=== PATIENT | female | born 2005 | race Hispanic/Latino ===

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

== ENCOUNTER 2023-03-28 14:58 | Emergency (ER) | payer BC, OTHER, SELFPAY ==
[2023-03-28 15:08] VITALS: BP 135/81; PULSE 84; RESP 16; TEMP 36.9; O2SAT 99
--- NOTE | 2023-03-28 15:46 | ED.GENADULT ---
HPI - General Adult General Chief complaint: Unspecified Stated complaint: pain in chest/left arm/headache Related Data Home Medications Medication Instructions Recorded Confirmed norgestimate 0.25 mg-ethinyl tablet 03/28/23 estradiol 35 mcg tablet (Mary) Allergies Allergy/AdvReac Type Severity Reaction Status Date / Time No Known Allergies Allergy Verified 03/28/23 15:13 Course Vital Signs Vital signs: Vital Signs Temperature 98.4 F 03/28/23 15:08 Pulse Rate 84 03/28/23 15:08 Respiratory Rate 16 03/28/23 15:08 Blood Pressure 135/81 03/28/23 15:08 Pulse Oximetry 99 03/28/23 15:08 Oxygen Delivery Room Air 03/28/23 15:08 Temperature 98.4 F 03/28/23 15:08 Pulse Rate 84 03/28/23 15:08 Respiratory Rate 16 03/28/23 15:08 Blood Pressure 135/81 03/28/23 15:08 Pulse Oximetry 99 03/28/23 15:08 Oxygen Delivery Room Air 03/28/23 15:08 Medical Decision Making Vital Signs Vital Signs: Vital Signs Temperature 98.4 F 03/28/23 15:08 Pulse Rate 84 03/28/23 15:08 Respiratory Rate 16 03/28/23 15:08 Blood Pressure 135/81 03/28/23 15:08 Pulse Oximetry 99 03/28/23 15:08 Oxygen Delivery Room Air 03/28/23 15:08 Temperature 98.4 F 03/28/23 15:08 Pulse Rate 84 03/28/23 15:08 Respiratory Rate 16 03/28/23 15:08 Blood Pressure 135/81 03/28/23 15:08 Pulse Oximetry 99 03/28/23 15:08 Oxygen Delivery Room Air 03/28/23 15:08 Discharge Plan Discharge Prescriptions: No Action norgestimate-ethinyl estradiol [Mary] 0.25-35 mg-mcg tablet Follow-up/Referrals: [facility] [Primary Care Provider] -
--- NOTE | 2023-03-28 15:47 | ED.GENADULT ---
HPI - General Adult General Chief complaint: Unspecified Stated complaint: pain in chest/left arm/headache Source: patient and RN notes reviewed Mode of arrival: ambulatory Limitations: no limitations History of Present Illness HPI narrative: 17-year-old female presenting for complaint of left arm pain x3 days. Pain is reported in the anterior chest, shoulder and Pain radiates to the elbow. Reports some tingling to the forearm and states legal aid feels weak. Pain is reproducible, and worse with movement at the shoulder. Denies injury or over use. Patient also reports headache x1 week. Taking excedrin, ibuprofen and amitriptyline for migraines. Denies vision changes, dizziness, n/v/d/f/c. Related Data Home Medications Medication Instructions Recorded Confirmed norgestimate 0.25 mg-ethinyl tablet 03/28/23 estradiol 35 mcg tablet (Mary) Allergies Allergy/AdvReac Type Severity Reaction Status Date / Time No Known Allergies Allergy Verified 03/28/23 15:13 Review of Systems Review of Systems: CONSTITUTIONAL: Denies body aches, fever, chills, or sweats. EYES: Denies visual changes, redness, or discharge. ENT: Denies rhinorrhea, congestion, sore throat, or otalgia. CARDIOVASCULAR: Denies chest pain, palpitations, or edema. RESPIRATORY: Denies cough or dyspnea. GASTROINTESTINAL: Denies abdominal pain, nausea, vomiting, or diarrhea. GENITOURINARY: Denies dysuria or hematuria. SKIN: Denies rash, itching, or wounds. MUSCULOSKELETAL: Reports left arm pain denies back pain, joint pain, or myalgia. NEUROLOGIC: Endorses headache, denies numbness, or weakness, dizziness All systems reviewed & are unremarkable except as noted in HPI and below PMFSH Past Medical History Medical History (Updated 03/28/23 @ 16:38 by Amarilis Mercer, SHANNA) No pertinent past medical history Comments At time of signature, I have reviewed and agree with nursing past medical, surgical, social and family history unless otherwise noted. Please see nursing chart for further information. There is no relevant family history pertinent to the presenting complaint Exam Narrative: GENERAL: Well-appearing, well-nourished HEAD: Normocephalic, atraumatic. EYES: PERRLA, EOMI. ENT: Mucous membranes pink and moist. No rhinorrhea. NECK: Normal AROM. Supple. No vpt. CHEST: No respiratory distress. Clear to auscultation. HEART: Regular rate and rhythm. No murmur appreciated. Normal peripheral pulses. ABDOMEN: Soft, nontender, nondistended, normal active bowel sounds. MUSCULOSKELETAL: Left anterior deltoid and anterior chest wall tender with palpation; Full ROM to LUE, reports pain to shoulder and chest with movement of arm. No bony tenderness. EXTREMITIES: Normal range of motion; pain reported with movement. No edema. SKIN: Warm, dry, no rash. Capillary refill normal. Normal skin turgor. NEURO:No focal deficits. Alert and oriented x3. EOMs intact without nystagmus. No facial droop/asymmetry noted bilaterally. Grimace intact. Intact sensation in face. Hearing intact bilaterally. Shoulder shrug intact. Strength 5/5 bilateral upper extremities. Ambulatory exam with a normal based, steady gait. PSYCH: Normal affect. Chest: Chest/axillae images: 1. anterior chest wall pain with palpation, anterior deltoid pain Course Course Emergency Course: Patient is aware of diagnosis, understands and agrees to treatment plan. Anticipatory guidance given. Patient agrees to follow-up as directed and is aware of reasons to seek care at the emergency department. Portions of this record may have been created with voice recognition software Level of Care: Express Care Visit Vital Signs Vital signs: Vital Signs Temperature 98.4 F 03/28/23 15:08 Pulse Rate 84 03/28/23 15:08 Respiratory Rate 16 03/28/23 15:08 Blood Pressure 135/81 03/28/23 15:08 Pulse Oximetry 99 03/28/23 15:08 Oxygen Delivery Room Air 03/28/23 15:08 Tem
== END 2023-03-28 16:08 | disposition home or self-care (01) ==
PROVIDERS: Emergency Provider Nurse Practitioner Family
DX: R51.9 Headache, unspecified (principal); M79.622 Pain in left upper arm
CPT/HCPCS: 99213; G0463

== ENCOUNTER 2023-08-19 10:06 | Emergency (ER) | payer SELFPAY ==
--- NOTE | 2023-08-19 10:09 | ED.URI ---
HPI - URI/Sore Throat General Chief Complaint: Upper Respiratory Infection Stated Complaint: Sinus Time Seen by Provider: 08/19/23 10:09 Source: patient Mode of arrival: ambulatory Limitations: no limitations History of Present Illness HPI Narrative: Patient is a 18-year-old female who presents with congestion, sore throat, cough for over a week. Patient states she had fever yesterday of 101. Patient has been taking Robitussin. Denies any nausea, vomiting, diarrhea, ear pain. Household has similar symptoms. Related Data Home Medications Medication Instructions Recorded Confirmed norgestimate 0.25 mg-ethinyl 1 tablet PO DAILY 03/28/23 08/19/23 estradiol 35 mcg tablet (Mary) Allergies Allergy/AdvReac Type Severity Reaction Status Date / Time No Known Allergies Allergy Verified 08/19/23 10:23 Review of Systems Review of Systems: All systems reviewed & are unremarkable except as noted in HPI and below Constitutional: Constitutional: Denies body ache(s), Denies chills, Denies fatigue, Reports fever(s), Denies headache(s), Denies malaise and Denies weakness Eyes: Eyes: Denies blurry vision, Denies itchy eyes and Denies loss of vision ENT: Denies otalgia, Denies headache(s), Reports nasal congestion, Denies sinus pain and Reports sore throat Cardiovascular: Cardiovascular: Denies chest pain, Denies irregular heart rhythm and Denies dyspnea Respiratory: Respiratory: Reports cough and Denies dyspnea Gastrointestinal: Gastrointestinal: Denies abdominal pain, Denies diarrhea, Denies nausea and Denies vomiting Musculoskeletal: Musculoskeletal: Denies back pain, Denies myalgias and Denies arthralgias Integumentary/Breasts: Skin/Breast: Denies pruritus and Denies rash Neurologic: Denies headache(s), Denies loss of vision and Denies weakness Psychiatric: Psychiatric: Reports no additional psychiatric complaints Endocrine: Endocrine: Denies fatigue Allergic/Immunologic: Allergic/Immunologic: Denies itchy eyes PMFSH Past Medical History Medical History No pertinent past medical history Comments At time of signature, agree with nursing past medical, surgical, social and family history. There is no relevant family history pertinent to the presenting complaint. Exam Const: General: cooperative, healthy appearing, comfortable, no acute distress and well nourished Nutritional Appearance: well nourished Orientation/consciousness: patient oriented x3 Limitations: no limitations HENMT: Head: normal to inspection, normocephalic and atraumatic Ears: hearing grossly normal bilaterally, external ears normal, TM's normal bilaterally, EAC's normal and no periauricular adenopathy Face/Nose/Sinus: Normal external nose present, Abnormal mucous membranes and turbinates present erythematous bilateral and diffuse, normal facial exam, sinuses nontender and face symmetric Face and sinus: normal facial exam, sinuses nontender and face symmetric Mouth: Yes Normal oral and palatal mucosa present, Yes lip normal, Yes tongue normal, Yes Normal salivary glands and ducts present, Yes oropharynx normal and Yes moist mucous membranes Teeth and gingiva: dentition normal Throat: posterior oropharynx normal, tonsils normal and uvula midline Eyes: General: appearance normal, both eyes and all related structures Alignment and Position: alignment normal and position normal Periorbital: periorbital findings normal Eyelids: eyelids normal Pupils: Equal, round and reactive pupils present Neck: Neck: normal visual inspection, full ROM, no lymphadenopathy and supple Chest: Chest palpation & inspection: normal inspection of the chest and normal palpation of entire chest wall Resp: Effort & Inspection: normal respiratory effort and able to speak in complete sentences Auscultation: clear to auscultation bilaterally, no crackles, no rales, no rhonchi and no wheezes Cardio: Rate: regular rat
[2023-08-19 10:14] VITALS: BP 124/74; PULSE 78; RESP 16; TEMP 36.9; O2SAT 99
== END 2023-08-19 11:01 | disposition home or self-care (01) ==
PROVIDERS: Emergency Provider Nurse Practitioner Family; PCP Physician Assistant
DX: J06.9 Acute upper respiratory infection, unspecified (principal); Z79.899 Other long term (current) drug therapy
CPT/HCPCS: 87081; 87880; 99213; G0463

== ENCOUNTER 2023-10-19 14:18 | Emergency (ER) | payer OTHER, SELFPAY ==
--- NOTE | 2023-10-19 14:25 | ED.GENADULT ---
HPI - General Adult General Chief complaint: Upper Respiratory Infection Stated complaint: Sore Throat Source: patient, RN notes reviewed and old records reviewed Mode of arrival: ambulatory Limitations: no limitations History of Present Illness HPI narrative: 18-year-old female presents to [facility] complaint of sore throat that started 1 week ago. Patient states also started having fever and nausea 3 days ago. Patient taking ibuprofen with little relief. Patient states highest temperature was 101?. Related Data Home Medications Medication Instructions Recorded Confirmed norgestimate 0.25 mg-ethinyl 1 tablet PO DAILY 03/28/23 10/19/23 estradiol 35 mcg tablet (Mary) Allergies Allergy/AdvReac Type Severity Reaction Status Date / Time No Known Allergies Allergy Verified 10/19/23 14:31 Review of Systems Constitutional: Constitutional: Reports no additional constitutional complaints, Denies body ache(s), Denies chills, Denies fatigue, Reports fever(s) and Denies headache(s) Eyes: Eyes: Reports no additional eye complaints and Denies blurry vision ENT: Reports system reviewed and no additional complaints, except as documented, Denies vertigo, Denies dizziness, Denies ear discharge, Denies otalgia, Denies facial pain, Denies headache(s), Reports nasal congestion, Denies nasal discharge, Denies sinus pain, Denies sinus pressure and Reports sore throat Cardiovascular: Cardiovascular: Reports no additional cardiovascular complaints, Denies chest pain, Denies chest pain at rest, Denies rapid heart rate and Denies dyspnea Respiratory: Respiratory: Reports no additional respiratory complaints, Denies chest congestion, Denies cough, Denies pain on inspiration, Denies pain with cough and Denies dyspnea Gastrointestinal: Gastrointestinal: Denies abdominal pain, Denies diarrhea, Reports nausea and Denies vomiting Integumentary/Breasts: Skin/Breast: Denies rash Neurologic: Reports system reviewed and no additional complaints, except as documented, Denies vertigo, Denies dizziness and Denies headache(s) Endocrine: Endocrine: Denies fatigue PMF Past Medical History Medical History No pertinent past medical history Comments At the time of my signature, I reviewed and agree with the nursing past medical, surgical, social, and family history. There is no relevant family history pertinent to the patient complaint. Exam Const: General: cooperative, healthy appearing, no acute distress and well nourished Nutritional Appearance: well nourished Orientation/consciousness: patient oriented x3 Limitations: no limitations HENMT: Head: normal to inspection and normocephalic Ears: external ears normal, TM's normal bilaterally, EAC's normal and mastoids normal Face/Nose/Sinus: normal facial exam Face and sinus: normal facial exam Mouth: Yes Normal oral and palatal mucosa present, Yes oropharynx normal and Yes moist mucous membranes Throat: tonsils normal, uvula midline, normal tonsils, no peritonsillar masses, posterior oropharynx abnormal erythema, no postnasal drainage and no uvular edema Eyes: General: appearance normal, both eyes and all related structures Sclera: sclerae normal Pupils: Equal, round and reactive pupils present Resp: Effort & Inspection: normal respiratory effort, able to speak in complete sentences, no audible wheezes, no cough, no respiratory distress and no retractions Auscultation: clear to auscultation bilaterally, no crackles, no rales, no rhonchi and no wheezes Cardio: Rate: regular rate Rhythm: regular rhythm Skin: General skin exam: normal color and no rashes or lesions noted Neuro: General: patient oriented x3 Cranial nerves: Yes Equal, round and reactive pupils present Psych: Appearance: grossly normal Mental Status: mental status grossly normal Speech and movement: Normal speech and movement present Affect: normal affect Course C
[2023-10-19 14:28] VITALS: BP 136/81; PULSE 73; RESP 16; TEMP 36.9; O2SAT 100
== END 2023-10-19 14:45 | disposition home or self-care (01) ==
PROVIDERS: Emergency Provider Registered Nurse; PCP Physician Assistant
DX: J02.8 Acute pharyngitis due to other specified organisms (principal); B97.89 Other viral agents as the cause of diseases classified elsewhere
CPT/HCPCS: 87081; 87880; 99213; G0463